=== PATIENT | male | born 1980 | race Caucasian/White ===

== ENCOUNTER → 2018-06-28 | Outpatient (CLI) | payer OTHER ==
[2018-06-28 15:12] LABS: HEMOGLOBIN 14.1 g/dL (13.5-17.0); MEAN CORPUSCULAR HEMOGLOBIN 30.5 pg (27.0-33.4); MEAN CORPUSCULAR HGB CONC 34.4 g/dL (32.0-36.0); MEAN CORPUSCULAR VOLUME 89 fl (80-97); PLATELET COUNT 308 10^3/uL (150-450); RED BLOOD COUNT 4.62 10^6/uL (4.35-5.55); RED CELL DISTRIBUTION WIDTH 13.1 % (11.5-14.0); WHITE BLOOD COUNT 7.3 10^3/uL (4.0-10.5)
[2018-06-28 15:16] LABS: APPEARANCE,URINE CLEAR; BILIRUBIN,URINE NEGATIVE (NEGATIVE); COLOR,URINE YELLOW; GLUCOSE, URINE NEGATIVE (NEGATIVE); KETONES,URINE NEGATIVE (NEGATIVE); LEUKOCYTE ESTERASE,URINE NEGATIVE (NEGATIVE); NITRITE,URINE NEGATIVE (NEGATIVE); PROTEIN,URINE NEGATIVE (NEGATIVE); URINE SPECIFIC GRAVITY 1.019; UROBILINOGEN,URINE NEGATIVE mg/dL (<2.0)
[2018-06-28 15:27] LABS: ANION GAP 9 (5-19); BLOOD UREA NITROGEN 17 mg/dL (7-20); CALCIUM 10.1 mg/dL (8.4-10.2); CARBON DIOXIDE 29 mmol/L (22-30); CHLORIDE 106 mmol/L (98-107); GLUCOSE 89 mg/dL (75-110); PHOSPHORUS 4.9 mg/dL (2.5-4.5); POTASSIUM 4.5 mmol/L (3.6-5.0); SODIUM 143.6 mmol/L (137-145); URIC ACID 8.1 mg/dL (3.5-8.5)
== END ==
LOC: OD 14:37
PROVIDERS: ATTEND Internal Medicine Nephrology
DX: N20.0 Calculus of kidney (principal)
CPT/HCPCS: 36415; 80048; 81001; 83970; 84100; 84550; 85027

== ENCOUNTER → 2018-09-27 | Outpatient (CLI) | payer OTHER ==
[2018-09-27 12:16] LABS: ANION GAP 12 (5-19); BLOOD UREA NITROGEN 16 mg/dL (7-20); CALCIUM 10.3 mg/dL (8.4-10.2); CARBON DIOXIDE 26 mmol/L (22-30); CHLORIDE 102 mmol/L (98-107); GLUCOSE 94 mg/dL (75-110); POTASSIUM 4.4 mmol/L (3.6-5.0); URIC ACID 6.1 mg/dL (3.5-8.5)
== END ==
LOC: OD 11:17
PROVIDERS: ATTEND Internal Medicine Nephrology
DX: N20.0 Calculus of kidney (principal)
CPT/HCPCS: 36415; 80048; 81003; 82131; 82140; 82340; 82436; 82507; 82570; 83735; 83935; 83945; 84105; 84133; 84300; 84392; 84550; 84560